=== PATIENT | male | born 1950 | race Caucasian/White ===

== ENCOUNTER 2019-08-10 19:24 | Inpatient (IN) | payer MEDICARE ==
[2019-08-10] MEDS ORDERED: Ventolin HFA Inhaler 60 PUFF INHALER INH PRN (23:17)
[2019-08-11 05:32] LABS: #Eosinphils 0.2 thou/uL (0.0-0.7); #Lymphocytes 1.7 thou/uL (1.20-3.40); #Monocytes 0.7 thou/uL (0.11-0.59); #Neutrophils 2.4 thou/uL (1.40-6.50); %Basophils 0.5 % (0.0-1.0); %Eosinophils 3.3 % (0.0-10.0); %Lymphocytes 34.1 % (21.0-51.0); %Monocytes 13.5 % (0.0-10.0); %Neutrophils 48.6 % (42.0-75.0); Hemoglobin 11.4 g/dL (14.0-18.0); Mean Corpuscular HGB CONC 31.5 g/dL (32.0-36.0); Mean Corpuscular Hemoglobin 27.7 pg (27.0-31.0); Mean Corpuscular Volume 88.1 fL (78.0-98.0); Mean Platelet Volume 5.7 fL (7.4-10.4); Platelet Count 174 thou/uL (130-400); Red Blood Cell (RBC) Count 4.11 mill/uL (4.70-6.10)
[2019-08-11 05:46] LABS: Anion Gap 15 mmol/L (10-20); BUN (Urea Nitrogen) 25 mg/dL (8.4-25.7); Calc. Creatinine Clearance 95 mL/min (70-130); Calcium 9.2 mg/dL (7.8-10.44); Carbon Dioxide 25 mmol/L (23-31); Chloride 104 mmol/L (98-107); Estimated GFR-MDRD 63; Glucose 130 mg/dL (80-115); Potassium 4.4 mmol/L (3.5-5.1); Sodium 140 mmol/L (136-145)
[2019-08-11] MEDS: DULoxetine 30 MG CAP PO SCH ×2 (08:33→20:49)
[2019-08-11] MEDS: metFORMIN 500 MG TAB PO SCH ×2 (08:33→16:05)
[2019-08-11] MEDS: Losartan 25 MG TAB PO SCH (08:33)
[2019-08-11] MEDS: Rosuvastatin 10 MG TAB PO SCH (08:33)
[2019-08-11] MEDS: Aspirin 81 mg Enteric Coated Tablet PO SCH ×2 (08:34→20:49)
[2019-08-11] MEDS: Carvedilol 6.25 MG TAB PO SCH ×2 (08:34→20:50)
[2019-08-11] MEDS: Gabapentin 300 MG CAP PO SCH ×3 (08:34→20:49)
[2019-08-11] MEDS: Potassium Chloride 10 MEQ TAB PO SCH (08:34)
[2019-08-11] MEDS: Furosemide 20 MG TAB PO SCH (08:34)
[2019-08-11] MEDS: HYDROcodone/Acetaminophen 10/325 mg Tablet PO PRN ×2 (11:54→16:05)
[2019-08-11] MEDS: Tamsulosin HCl 0.4 MG CAP PO SCH (20:49)
[2019-08-11] MEDS: Finasteride 5 MG TAB PO SCH (20:53)
[2019-08-12] MEDS: Gabapentin 300 MG CAP PO SCH ×3 (08:34→20:49)
[2019-08-12] MEDS: metFORMIN 500 MG TAB PO SCH ×2 (08:34→16:05)
[2019-08-12] MEDS: Furosemide 20 MG TAB PO SCH (08:34)
[2019-08-12] MEDS: Carvedilol 6.25 MG TAB PO SCH ×2 (08:34→20:48)
[2019-08-12] MEDS: Losartan 25 MG TAB PO SCH (08:34)
[2019-08-12] MEDS: Rosuvastatin 10 MG TAB PO SCH (08:34)
[2019-08-12] MEDS: DULoxetine 30 MG CAP PO SCH ×2 (08:34→20:49)
[2019-08-12] MEDS: Aspirin 81 mg Enteric Coated Tablet PO SCH ×2 (08:34→20:48)
[2019-08-12] MEDS: Potassium Chloride 10 MEQ TAB PO SCH (08:34)
[2019-08-12] MEDS: HYDROcodone/Acetaminophen 10/325 mg Tablet PO PRN ×3 (08:48→22:10)
--- NOTE | 2019-08-12 13:13 | PRG ---
DATE OF SERVICE: 08/12/2019 SUBJECTIVE: Mr. Palacios is doing well. He is up in his chair. He apparently had a good therapy session. Denies any complaints. Denies any chest pain or shortness of breath. No family at bedside. OBJECTIVE: VITAL SIGNS: He is afebrile. Heart rate is 92, respirations 18, oxygen saturation 93% on room air, and blood pressure 126/68. CARDIOVASCULAR: S1 and S2 plus. RESPIRATORY: Normal vesicular breath sounds. ABDOMEN: Soft, nontender. Bowel sounds heard in all quadrants. EXTREMITIES: Without cyanosis or clubbing. Trace left leg edema. Left hip incision with dressing. CENTRAL NERVOUS SYSTEM: Awake and responsive. Generalized weakness. Grossly nonfocal. LABORATORY DATA: Blood sugars are 182, 168, and 168. IMPRESSION: 1. Diabetes mellitus, type 2. 2. Hypertension. 3. Dyslipidemia. 4. Coronary artery disease. 5. Chronic systolic congestive heart failure. 6. Osteoarthritis, status post left hip replacement. 7. Benign prostatic hypertrophy with urinary retention, requiring Fenton catheter. PLAN: 1. Continue current medications. 2. 1800-calorie heart healthy ADA diet. 3. Accu-Cheks with sliding scale coverage. 4. Orthopedic precautions. 5. DVT prophylaxis per Orthopedic's recommendations. 6. Decubitus precaution. 7. Stress ulcer prophylaxis. 8. Continue therapy. 9. Discussed with the patient in detail. All questions answered. Job ID: [id number]
--- NOTE | 2019-08-12 14:02 | HP ---
CHIEF COMPLAINT: Status post left total hip arthroplasty for physical therapy. HISTORY OF PRESENT ILLNESS: This is a very pleasant 69-year-old male, who underwent left total hip arthroplasty and was doing great with therapy. Unfortunately, once his epidural was removed, he apparently was in significant pain and was unable to do much activity. He also was noted to have urinary retention requiring Fenton catheter placement. He also had a low-grade temperature. He slowly improved with IV fluids, tramadol, and Fenton catheter placement and was felt to be a candidate for inpatient therapy and so was transferred here. The patient is resting in bed and denies any complaints. He states that pain is controlled. He did get an episode of shortness of breath, which resolved with him lying down. He denies any chest pain. No fever or chills. His spouse is in the room. PAST MEDICAL HISTORY: 1. Coronary artery disease. 2. Hypertension. 3. Diabetes mellitus, type 2. 4. Benign prostatic hypertrophy with urinary retention, requiring catheter placement. 5. History of chronic kidney disease and acute renal failure, but now laboratory values are within normal limits. 6. History of congestive heart failure, unknown whether it is systolic or diastolic. 7. Osteoarthritis. PAST SURGICAL HISTORY: 1. Coronary artery bypass grafting x4. 2. Spinal fusion in the 1980s. 3. Left total knee replacement in 2010. 4. Biventricular AICD placement in 2017. ALLERGIES: AMITRIPTYLINE, LATEX, AND NATURAL RUBBER. FAMILY HISTORY: Both parents , nothing significant. PSYCHOSOCIAL HISTORY: Former smoker, he quit smoking in 2002. Denies any alcohol or recreational drug abuse. REVIEW OF SYSTEMS: CARDIOVASCULAR SYSTEM: Denies any chest pain, shortness of breath, palpitations, PND, orthopnea, or pedal edema. RESPIRATORY SYSTEM: Denies any chronic cough, expectoration, or pleuritic type chest pain. GASTROINTESTINAL SYSTEM: Denies any nausea, vomiting, diarrhea, constipation, hematemesis, melena, or hematochezia. GENITOURINARY SYSTEM: Urinary retention, requiring Fenton catheter. No hematuria. CENTRAL NERVOUS SYSTEM: Generalized weakness. Denies any focal numbness or weakness or fainting spells. HEENT: Denies any difficulty with speech, vision, hearing, or swallowing. SKIN: Denies any rash. MEDICATIONS: He has been transferred here on the following medications: 1. [place] 10/325 one tablet q.4 p.r.n. pain moderate and 2 tablets q.4 for severe. 2. Albuterol 2 puffs q.6 p.r.n. 3. Ecotrin 81 mg b.i.d. 4. Carvedilol 6.25 mg b.i.d. 5. Cymbalta 60 mg b.i.d. 6. Proscar 5 mg daily. 7. Lasix 20 mg daily. 8. Neurontin 300 mg t.i.d. 9. Cozaar 25 mg daily. 10. Metformin 500 mg b.i.d. 11. Potassium 10 mEq daily. 12. Crestor 20 mg daily. 13. Flomax 0.4 mg at bedtime. 14. Zanaflex 4 mg b.i.d. p.r.n. PHYSICAL EXAMINATION: GENERAL: A very pleasant 69-year-old male, resting comfortably in bed and denies any complaints. His spouse is in the room. VITAL SIGNS: He is afebrile, heart rate 98, respirations 18, oxygen saturation 91% on room air, and blood pressure 156/74. HEENT: Normocephalic and atraumatic. Pupils equally reactive to light and accommodation. External muscles intact. NECK: No JVD, thyromegaly, cervical lymphadenopathy, or throat exudates. No carotid bruits. CARDIOVASCULAR SYSTEM: S1 and S2 plus. Rate and rhythm regular. RESPIRATORY SYSTEM: Normal vesicular breath sounds heard in all lung scott. ABDOMEN: Soft and nontender. Bowel sounds heard in all quadrants. EXTREMITIES: Without cyanosis or clubbing. Hip incision is looking healthy. CENTRAL NERVOUS SYSTEM: Awake and responsive. Cranial nerves 2 through 12 intact. Generalized weakness. LABORATORY DATA: Laboratory values done on admission shows a white count of 5, H and H are 11.4 and 36.3. Sodium 140, potassium 4.4, BUN and creatinine are 25 and 1.15. Blood sugars are 130, 164, and 164. IMPRESSION: 1. Diabetes mellitus, type 2. 2. Hypertension. 3. Coronary artery disease. 4. Chronic systolic congestive heart failure. 5. Benign prostatic hypertrophy. 6. Dyslipidemia. 7. Osteoarthritis, status post hip replacement. 8. Urinary retention, requiring Fenton catheter placement. PLAN: 1. Continue current medications. 2. 1800 calorie heart healthy ADA diet. 3. Accu-Cheks with sliding scale coverage. 4. Monitor blood pressure and adjust medications as needed. 5. Monitor for any decompensation of heart failure. 6. Deep venous thrombosis prophylaxis per Orthopedic recommendation. 7. Decubitus precautions. 8. Stress ulcer prophylaxis. 9. Orthopedic precautions and incision care. 10. Routine laboratory values. 11. PT and OT to eval and treat. 12. Discussed with the patient and spouse in detail. All questions answered. 13. Fenton catheter care. Job ID: [id number]
[2019-08-12] MEDS: Finasteride 5 MG TAB PO SCH (20:49)
[2019-08-12] MEDS: Tamsulosin HCl 0.4 MG CAP PO SCH (20:50)
[2019-08-13] MEDS: Losartan 25 MG TAB PO SCH (08:21)
[2019-08-13] MEDS: Gabapentin 300 MG CAP PO SCH ×3 (08:21→20:45)
[2019-08-13] MEDS: Rosuvastatin 10 MG TAB PO SCH (08:21)
[2019-08-13] MEDS: Potassium Chloride 10 MEQ TAB PO SCH (08:22)
[2019-08-13] MEDS: metFORMIN 500 MG TAB PO SCH ×2 (08:22→17:23)
[2019-08-13] MEDS: HYDROcodone/Acetaminophen 10/325 mg Tablet PO PRN ×2 (08:22→17:22)
[2019-08-13] MEDS: Carvedilol 6.25 MG TAB PO SCH ×2 (08:22→20:44)
[2019-08-13] MEDS: DULoxetine 30 MG CAP PO SCH ×2 (08:22→20:44)
[2019-08-13] MEDS: Aspirin 81 mg Enteric Coated Tablet PO SCH ×2 (08:22→20:44)
[2019-08-13] MEDS: Furosemide 20 MG TAB PO SCH (08:23)
--- NOTE | 2019-08-13 14:06 | PRG ---
DATE OF SERVICE: 08/13/2019 SUBJECTIVE: Mr. Palacios is doing well. He is getting ready to participate with therapy. He denies any questions or concerns. No family at bedside. OBJECTIVE: VITAL SIGNS: He is afebrile, heart rate 88, respirations 20, oxygen saturation 94% on room air, and blood pressure 125/69. CARDIOVASCULAR SYSTEM: S1 and S2 plus. RESPIRATORY SYSTEM: Normal vesicular breath sounds. ABDOMEN: Soft and nontender. Bowel sounds heard in all quadrants. EXTREMITIES: Without cyanosis or clubbing. Fenton catheter in place. CENTRAL NERVOUS SYSTEM: Awake and responsive. Grossly nonfocal. IMPRESSION: 1. Status post left hip replacement. 2. Coronary artery disease. 3. Hypertension. 4. Diabetes mellitus, type 2. 5. Benign prostatic hypertrophy with urinary retention. 6. Osteoarthritis. 7. History of congestive heart failure, likely systolic. PLAN: 1. Continue current medications. 2. 1800 calorie heart healthy ADA diet. 3. Accu-Cheks with sliding scale coverage. 4. DVT prophylaxis per Orthopedic recommendations. 5. Decubitus precautions. 6. Stress ulcer prophylaxis. 7. Routine laboratory values. 8. Physical therapy. Job ID: [id number]
[2019-08-13] MEDS: Finasteride 5 MG TAB PO SCH (20:45)
[2019-08-13] MEDS: Tamsulosin HCl 0.4 MG CAP PO SCH (20:45)
[2019-08-14] MEDS: HYDROcodone/Acetaminophen 10/325 mg Tablet PO PRN ×2 (08:18→18:48)
[2019-08-14] MEDS: Aspirin 81 mg Enteric Coated Tablet PO SCH ×2 (08:19→20:59)
[2019-08-14] MEDS: Rosuvastatin 10 MG TAB PO SCH (08:19)
[2019-08-14] MEDS: DULoxetine 30 MG CAP PO SCH ×2 (08:19→20:58)
[2019-08-14] MEDS: Potassium Chloride 10 MEQ TAB PO SCH (08:19)
[2019-08-14] MEDS: Gabapentin 300 MG CAP PO SCH ×3 (08:19→20:58)
[2019-08-14] MEDS: Losartan 25 MG TAB PO SCH (08:20)
[2019-08-14] MEDS: Carvedilol 6.25 MG TAB PO SCH ×2 (08:20→20:59)
[2019-08-14] MEDS: Furosemide 20 MG TAB PO SCH (08:20)
[2019-08-14] MEDS: metFORMIN 500 MG TAB PO SCH ×2 (08:23→17:22)
[2019-08-14] MEDS: Tamsulosin HCl 0.4 MG CAP PO SCH (20:59)
[2019-08-14] MEDS: Finasteride 5 MG TAB PO SCH (21:00)
[2019-08-15] MEDS: Gabapentin 300 MG CAP PO SCH ×3 (08:03→21:02)
[2019-08-15] MEDS: Rosuvastatin 10 MG TAB PO SCH (08:03)
[2019-08-15] MEDS: Potassium Chloride 10 MEQ TAB PO SCH (08:03)
[2019-08-15] MEDS: DULoxetine 30 MG CAP PO SCH ×2 (08:03→21:01)
[2019-08-15] MEDS: Losartan 25 MG TAB PO SCH (08:04)
[2019-08-15] MEDS: Aspirin 81 mg Enteric Coated Tablet PO SCH ×2 (08:04→21:01)
[2019-08-15] MEDS: Furosemide 20 MG TAB PO SCH (08:04)
[2019-08-15] MEDS: metFORMIN 500 MG TAB PO SCH ×2 (08:04→16:11)
[2019-08-15] MEDS: Carvedilol 6.25 MG TAB PO SCH ×2 (08:04→21:02)
[2019-08-15] MEDS: HYDROcodone/Acetaminophen 10/325 mg Tablet PO PRN (13:39)
[2019-08-15] MEDS: Tamsulosin HCl 0.4 MG CAP PO SCH (21:01)
[2019-08-15] MEDS: Finasteride 5 MG TAB PO SCH (21:02)
[2019-08-16] MEDS: Potassium Chloride 10 MEQ TAB PO SCH (08:02)
[2019-08-16] MEDS: metFORMIN 500 MG TAB PO SCH ×2 (08:02→17:31)
[2019-08-16] MEDS: DULoxetine 30 MG CAP PO SCH ×2 (08:02→21:25)
[2019-08-16] MEDS: Aspirin 81 mg Enteric Coated Tablet PO SCH ×2 (08:02→21:25)
[2019-08-16] MEDS: Gabapentin 300 MG CAP PO SCH ×3 (08:03→21:25)
[2019-08-16] MEDS: Losartan 25 MG TAB PO SCH (08:03)
[2019-08-16] MEDS: Carvedilol 6.25 MG TAB PO SCH ×2 (08:03→21:25)
[2019-08-16] MEDS: Furosemide 20 MG TAB PO SCH (08:03)
[2019-08-16] MEDS: Rosuvastatin 10 MG TAB PO SCH (08:05)
[2019-08-16] MEDS: HYDROcodone/Acetaminophen 10/325 mg Tablet PO PRN ×4 (09:33→22:44)
--- NOTE | 2019-08-16 19:03 | RAD ---
Exam:One view left hip HISTORY: Pain COMPARISON: None FINDINGS: One view left hip demonstrates uncomplicated hip arthroplasty. Visualized bony pelvis is un remarkable IMPRESSION: Unremarkable exam
[2019-08-16] MEDS: Tamsulosin HCl 0.4 MG CAP PO SCH (21:25)
[2019-08-16] MEDS: Finasteride 5 MG TAB PO SCH (21:26)
[2019-08-17] MEDS: Carvedilol 6.25 MG TAB PO SCH ×2 (07:58→20:28)
[2019-08-17] MEDS: Aspirin 81 mg Enteric Coated Tablet PO SCH ×2 (07:58→20:27)
[2019-08-17] MEDS: metFORMIN 500 MG TAB PO SCH ×2 (07:58→17:51)
[2019-08-17] MEDS: Rosuvastatin 10 MG TAB PO SCH (08:01)
[2019-08-17] MEDS: Potassium Chloride 10 MEQ TAB PO SCH (08:01)
[2019-08-17] MEDS: Furosemide 20 MG TAB PO SCH (08:01)
[2019-08-17] MEDS: Gabapentin 300 MG CAP PO SCH ×3 (08:01→20:28)
[2019-08-17] MEDS: HYDROcodone/Acetaminophen 10/325 mg Tablet PO PRN ×2 (08:01→23:39)
[2019-08-17] MEDS: Losartan 25 MG TAB PO SCH (08:01)
[2019-08-17] MEDS: DULoxetine 30 MG CAP PO SCH ×2 (08:01→20:27)
--- NOTE | 2019-08-17 13:24 | PRG ---
DATE OF SERVICE: 08/17/2019 SUBJECTIVE: Mr. Palacios has been moved up to room 141. He apparently is progressing with therapy as expected. He did have some drainage from the incision site, but the current dressing is dry. He denies any fever, chills, or any increasing pain. Discussed with nursing. OBJECTIVE: VITAL SIGNS: He is afebrile, heart rate 93, respirations 20, oxygen saturation 95% on room air, blood pressure 127/67. CARDIOVASCULAR: S1 and S2 plus. RESPIRATORY: Normal vesicular breath sounds. ABDOMEN: Soft and nontender. Bowel sounds heard in all quadrants. EXTREMITIES: Without cyanosis or clubbing. Trace edema, left leg. Left hip incision with dressing. CENTRAL NERVOUS SYSTEM: Awake and responsive. Generalized weakness. Otherwise, nonfocal. LABORATORY DATA: Blood sugars are 141, 129, 124, 201, 135, and 201. IMPRESSION: 1. Diabetes mellitus, type 2. 2. Coronary artery disease. 3. Hypertension. 4. Benign prostatic hypertrophy. 5. Osteoarthritis. 6. Chronic systolic congestive heart failure. 7. Recent left hip replacement. PLAN: 1. Continue current medications. 2. 1800-calorie heart-healthy ADA diet. 3. Accu-Cheks with sliding scale coverage. 4. DVT prophylaxis. 5. Fenton catheter care. 6. Physical therapy. 7. Routine laboratory values. 8. Continue therapy. 9. Discussed with the patient in detail. All questions were answered. Job ID: [id number]
[2019-08-17] MEDS: Tamsulosin HCl 0.4 MG CAP PO SCH (20:28)
[2019-08-17] MEDS: Finasteride 5 MG TAB PO SCH (20:29)
[2019-08-18 05:36] LABS: #Basophils 0.1 thou/uL (0.0-0.2); #Eosinphils 0.2 thou/uL (0.0-0.7); #Monocytes 0.5 thou/uL (0.11-0.59); #Neutrophils 2.5 thou/uL (1.40-6.50); %Basophils 1.1 % (0.0-1.0); %Eosinophils 3.1 % (0.0-10.0); %Lymphocytes 38.2 % (21.0-51.0); %Monocytes 9.3 % (0.0-10.0); %Neutrophils 48.4 % (42.0-75.0); Hemoglobin 12.1 g/dL (14.0-18.0); Mean Corpuscular HGB CONC 32.3 g/dL (32.0-36.0); Mean Corpuscular Hemoglobin 28.7 pg (27.0-31.0); Mean Corpuscular Volume 89.1 fL (78.0-98.0); Mean Platelet Volume 5.9 fL (7.4-10.4); Platelet Count 251 thou/uL (130-400); RBC Distribution Width 12.1 % (11.5-14.5); Red Blood Cell (RBC) Count 4.19 mill/uL (4.70-6.10); White Blood Cell (WBC) Count 5.2 thou/uL (4.8-10.8)
[2019-08-18 05:53] LABS: Anion Gap 16 mmol/L (10-20); BUN (Urea Nitrogen) 28 mg/dL (8.4-25.7); Calc. Creatinine Clearance 83 mL/min (70-130); Carbon Dioxide 26 mmol/L (23-31); Chloride 103 mmol/L (98-107); Estimated GFR-MDRD 53; Glucose 148 mg/dL (80-115); Potassium 4.5 mmol/L (3.5-5.1); Sodium 140 mmol/L (136-145)
[2019-08-18] MEDS: metFORMIN 500 MG TAB PO SCH ×2 (08:23→16:09)
[2019-08-18] MEDS: Rosuvastatin 10 MG TAB PO SCH (08:24)
[2019-08-18] MEDS: Furosemide 20 MG TAB PO SCH (08:27)
[2019-08-18] MEDS: Aspirin 81 mg Enteric Coated Tablet PO SCH ×2 (08:27→20:16)
[2019-08-18] MEDS: Carvedilol 6.25 MG TAB PO SCH ×2 (08:28→20:17)
[2019-08-18] MEDS: Potassium Chloride 10 MEQ TAB PO SCH (08:28)
[2019-08-18] MEDS: DULoxetine 30 MG CAP PO SCH ×2 (08:35→20:17)
[2019-08-18] MEDS: Gabapentin 300 MG CAP PO SCH ×3 (08:36→20:17)
[2019-08-18] MEDS: Losartan 25 MG TAB PO SCH (08:40)
[2019-08-18] MEDS: HYDROcodone/Acetaminophen 10/325 mg Tablet PO PRN ×2 (10:39→20:18)
--- NOTE | 2019-08-18 13:53 | PRG ---
DATE OF SERVICE: 08/18/2019 SUBJECTIVE: Mr. Palacios is doing well. He is up in his chair. No further oozing onto his incision dressing. I advise him to drink plenty of water as his creatinine is slowly creeping up. OBJECTIVE: VITAL SIGNS: He is afebrile. Heart rate is 90, respirations 18, oxygen saturation 93% on room air, and blood pressure 144/81. CARDIOVASCULAR SYSTEM: S1 and S2 plus. RESPIRATORY SYSTEM: Normal vesicular breath sounds. ABDOMEN: Soft, nontender, and obese. Bowel sounds heard in all quadrants. EXTREMITIES: Without cyanosis or clubbing. Left hip incision is dry. CENTRAL NERVOUS SYSTEM: Awake and responsive. Grossly nonfocal. ASSESSMENT: 1. Status post left hip arthroplasty for osteoarthritis. 2. Diabetes mellitus, type 2. 3. Coronary artery disease. 4. Hypertension. 5. BPH. 6. Chronic systolic congestive heart failure seven. 7. Mild renal insufficiency, likely prerenal. PLAN: 1. Continue current medications. 2. 1800 calorie heart healthy ADA diet and encouraged more water intake. 3. Accu-Cheks with sliding scale coverage. 4. Monitor blood pressure and adjust medications as needed. 5. Orthopedic precautions. 6. Incision care. 7. Routine laboratory values. 8. Physical therapy. 9. Monitor for any decompensation of heart failure. Job ID: [id number]
[2019-08-18] MEDS: Finasteride 5 MG TAB PO SCH (20:17)
[2019-08-18] MEDS: Tamsulosin HCl 0.4 MG CAP PO SCH (20:17)
[2019-08-19] MEDS: Aspirin 81 mg Enteric Coated Tablet PO SCH ×2 (08:27→20:02)
[2019-08-19] MEDS: Furosemide 20 MG TAB PO SCH (08:27)
[2019-08-19] MEDS: Potassium Chloride 10 MEQ TAB PO SCH (08:28)
[2019-08-19] MEDS: metFORMIN 500 MG TAB PO SCH ×2 (08:28→16:55)
[2019-08-19] MEDS: Gabapentin 300 MG CAP PO SCH ×3 (08:28→20:02)
[2019-08-19] MEDS: Carvedilol 6.25 MG TAB PO SCH ×2 (08:29→20:02)
[2019-08-19] MEDS: DULoxetine 30 MG CAP PO SCH ×2 (08:31→20:02)
[2019-08-19] MEDS: Losartan 25 MG TAB PO SCH (08:33)
[2019-08-19] MEDS: Rosuvastatin 10 MG TAB PO SCH (08:33)
[2019-08-19] MEDS: HYDROcodone/Acetaminophen 10/325 mg Tablet PO PRN ×2 (09:34→13:36)
--- NOTE | 2019-08-19 13:14 | PRG ---
DATE OF SERVICE: 08/19/2019 SUBJECTIVE: Mr. Palacios is doing well, did well with therapy. His spouse is in the room. No concerns or questions. OBJECTIVE: VITAL SIGNS: He is afebrile, heart rate is 87, respirations 20, oxygen saturation 92% on room air, blood pressure 160/81. CARDIOVASCULAR SYSTEM: S1 and S2 plus. RESPIRATORY SYSTEM: Vesicular breath sounds. ABDOMEN: Soft, nontender. Bowel sounds heard in all quadrants. EXTREMITIES: Without cyanosis or clubbing. Left hip incision with dressing. CENTRAL NERVOUS SYSTEM: Awake and responsive. Generalized weakness. LABORATORY DATA: Blood sugars are 201, 197, 144, and 219. IMPRESSION: 1. Left hip replacement for osteoarthritis. 2. Chronic systolic congestive heart failure. 3. Diabetes mellitus type 2. 4. Coronary artery disease. 5. Hypertension. 6. Benign prostatic hypertrophy. PLAN: 1. Continue current medications. 2. 1800 calorie heart healthy ADA diet. 3. Accu-Cheks with sliding scale coverage. 4. DVT prophylaxis per Orthopedic recommendations. 5. Decubitus precautions. 6. Stress ulcer prophylaxis. 7. Incision care. 8. Physical therapy. 9. Discussed with the patient and spouse in detail. All questions were answered. Job ID: [id number]
[2019-08-19] MEDS: Finasteride 5 MG TAB PO SCH (20:02)
[2019-08-19] MEDS: Tamsulosin HCl 0.4 MG CAP PO SCH (20:02)
[2019-08-20] MEDS: HYDROcodone/Acetaminophen 10/325 mg Tablet PO PRN ×3 (08:27→21:57)
[2019-08-20] MEDS: Aspirin 81 mg Enteric Coated Tablet PO SCH ×2 (08:29→21:57)
[2019-08-20] MEDS: Rosuvastatin 10 MG TAB PO SCH (08:29)
[2019-08-20] MEDS: Furosemide 20 MG TAB PO SCH (08:29)
[2019-08-20] MEDS: Losartan 25 MG TAB PO SCH (08:29)
[2019-08-20] MEDS: metFORMIN 500 MG TAB PO SCH ×2 (08:29→17:33)
[2019-08-20] MEDS: Carvedilol 6.25 MG TAB PO SCH ×2 (08:29→21:56)
[2019-08-20] MEDS: DULoxetine 30 MG CAP PO SCH ×2 (08:29→21:56)
[2019-08-20] MEDS: Potassium Chloride 10 MEQ TAB PO SCH (08:30)
[2019-08-20] MEDS: Gabapentin 300 MG CAP PO SCH ×3 (08:30→21:56)
--- NOTE | 2019-08-20 13:24 | PRG ---
DATE OF SERVICE: 08/20/2019 SUBJECTIVE: Mr. Palacios is doing well. He participated with therapy trying to get in and out of his car. He apparently continues to have episodes of lightheadedness and dizziness, especially when he changes positions. This has been going on even prior to his admission. He denies any ringing noise in the ears. He denies any URI symptoms. He denies any palpitations or visual symptoms with these episodes. OBJECTIVE: VITAL SIGNS: He is afebrile, heart rate 92, respirations 20, oxygen saturation 93% on room air, blood pressure 144/77. CARDIOVASCULAR: S1 and S2 plus. RESPIRATORY: Normal vesicular breath sounds. ABDOMEN: Soft and nontender. Bowel sounds heard in all quadrants. EXTREMITIES: Without cyanosis or clubbing. CENTRAL NERVOUS SYSTEM: Awake and responsive. Grossly nonfocal. Cerebellar testing is negative. Romberg's, not done due to the patient resting in bed, but his dizziness sounds more orthostatic. IMPRESSION: 1. Left hip replacement. 2. Diabetes mellitus, type 2. 3. Chronic systolic congestive heart failure. 4. Benign prostatic hypertrophy. 5. Dyslipidemia. 6. Dizziness, may be worsened by his Flomax. PLAN: 1. Continue current medications. 2. Slow changes in posture. 3. 1800-calorie heart-healthy ADA diet. 4. Accu-Cheks with sliding scale coverage. 5. Physical therapy. 6. Check with orthopedic surgeon and see if the gm can come out today, it is day 15. 7. Discussed with nursing,. Routine laboratory values and discharge planning. Job ID: [id number]
[2019-08-20] MEDS: Tamsulosin HCl 0.4 MG CAP PO SCH (21:56)
[2019-08-20] MEDS: Finasteride 5 MG TAB PO SCH (21:57)
[2019-08-21] MEDS: Gabapentin 300 MG CAP PO SCH ×3 (08:27→20:49)
[2019-08-21] MEDS: Potassium Chloride 10 MEQ TAB PO SCH (08:27)
[2019-08-21] MEDS: DULoxetine 30 MG CAP PO SCH ×2 (08:27→20:52)
[2019-08-21] MEDS: metFORMIN 500 MG TAB PO SCH ×2 (08:27→15:58)
[2019-08-21] MEDS: Rosuvastatin 10 MG TAB PO SCH (08:27)
[2019-08-21] MEDS: Carvedilol 6.25 MG TAB PO SCH ×2 (08:27→20:52)
[2019-08-21] MEDS: HYDROcodone/Acetaminophen 10/325 mg Tablet PO PRN ×2 (08:28→13:45)
[2019-08-21] MEDS: Aspirin 81 mg Enteric Coated Tablet PO SCH ×2 (08:28→20:52)
[2019-08-21] MEDS: Furosemide 20 MG TAB PO SCH (08:28)
[2019-08-21] MEDS: Losartan 25 MG TAB PO SCH (08:28)
[2019-08-21] MEDS ORDERED: Polyethylene Glycol 3350 17 GM Packet PO SCH (09:45)
--- NOTE | 2019-08-21 09:47 | PRG ---
DATE OF SERVICE: 08/21/2019 SUBJECTIVE: Mr. Palacios is doing well except for constipation. No family at bedside. Discussed with nursing. OBJECTIVE: VITAL SIGNS: He is afebrile. Heart rate is 85, respirations 20, oxygen saturation 92% on room air, and blood pressure 111/65. CARDIOVASCULAR: S1 and S2 plus. RESPIRATORY SYSTEM: Normal vesicular breath sounds. ABDOMEN: Soft and nontender. Bowel sounds heard in all quadrants. EXTREMITIES: Without cyanosis or clubbing. Peripheral pulses are palpable. Left hip incision with dressing and it is dry. CENTRAL NERVOUS SYSTEM: Awake and responsive. Grossly nonfocal. LABORATORY DATA: Blood sugars are 128, 158, 124, 161, and 125. IMPRESSION: 1. Status post left hip arthroplasty. 2. Diabetes mellitus, type 2. 3. Coronary artery disease. 4. Chronic systolic congestive heart failure. 5. Benign prostatic hypertrophy. 6. Worsening renal insufficiency. PLAN: 1. Continue current medications. 2. 1800-calorie heart healthy ADA diet. 3. Accu-Cheks with sliding scale coverage. 4. DVT prophylaxis per Orthopedic recommendations. 5. Decubitus precautions. 6. Stress ulcer prophylaxis. 7. Recheck BMP and CBC in the morning. 8. Continue physical therapy. 9. Orthopedic precautions and incision care. 10. Outpatient followup with Urology to see if there is any alternative for Flomax and see if that helps with his orthostatic lightheadedness and dizziness. Job ID: [id number]
[2019-08-21] MEDS: Tamsulosin HCl 0.4 MG CAP PO SCH (20:52)
[2019-08-21] MEDS: Finasteride 5 MG TAB PO SCH (20:55)
[2019-08-22 05:22] LABS: #Basophils 0.1 thou/uL (0.0-0.2); #Eosinphils 0.3 thou/uL (0.0-0.7); #Lymphocytes 1.7 thou/uL (1.20-3.40); #Monocytes 0.6 thou/uL (0.11-0.59); #Neutrophils 2.3 thou/uL (1.40-6.50); %Basophils 1.2 % (0.0-1.0); %Eosinophils 5.5 % (0.0-10.0); %Monocytes 11.4 % (0.0-10.0); %Neutrophils 46.9 % (42.0-75.0); Mean Corpuscular HGB CONC 31.9 g/dL (32.0-36.0); Mean Corpuscular Hemoglobin 28.6 pg (27.0-31.0); Mean Corpuscular Volume 89.6 fL (78.0-98.0); Mean Platelet Volume 6.5 fL (7.4-10.4); Platelet Count 195 thou/uL (130-400); RBC Distribution Width 12.4 % (11.5-14.5); Red Blood Cell (RBC) Count 4.22 mill/uL (4.70-6.10)
[2019-08-22 05:36] LABS: Anion Gap 15 mmol/L (10-20); BUN (Urea Nitrogen) 34 mg/dL (8.4-25.7); Calc. Creatinine Clearance 79 mL/min (70-130); Calcium 9.1 mg/dL (7.8-10.44); Carbon Dioxide 26 mmol/L (23-31); Chloride 104 mmol/L (98-107); Estimated GFR-MDRD 50; Glucose 154 mg/dL (80-115); Potassium 4.9 mmol/L (3.5-5.1); Sodium 140 mmol/L (136-145)
[2019-08-22] MEDS: Polyethylene Glycol 3350 17 GM Packet PO SCH (08:37)
[2019-08-22] MEDS: HYDROcodone/Acetaminophen 10/325 mg Tablet PO PRN (08:37)
[2019-08-22] MEDS: Gabapentin 300 MG CAP PO SCH ×3 (08:38→20:27)
[2019-08-22] MEDS: Aspirin 81 mg Enteric Coated Tablet PO SCH ×2 (08:38→20:28)
[2019-08-22] MEDS: Carvedilol 6.25 MG TAB PO SCH ×2 (08:38→20:27)
[2019-08-22] MEDS: Losartan 25 MG TAB PO SCH (08:38)
[2019-08-22] MEDS: metFORMIN 500 MG TAB PO SCH ×2 (08:38→16:02)
[2019-08-22] MEDS: DULoxetine 30 MG CAP PO SCH ×2 (08:38→20:27)
[2019-08-22] MEDS: Furosemide 20 MG TAB PO SCH (08:39)
[2019-08-22] MEDS: Potassium Chloride 10 MEQ TAB PO SCH (08:39)
[2019-08-22] MEDS: Rosuvastatin 10 MG TAB PO SCH (08:39)
--- NOTE | 2019-08-22 14:10 | PRG ---
DATE OF SERVICE: 08/22/2019 SUBJECTIVE: Mr. Palacios is doing well. He is getting ready to walk in the hallways with his walker. He is close to meeting goals and anticipated discharge is sometime next week. He was concerned about mass in the back of his neck, and on examination, it feels like a lipoma. Apparently, his primary care physician checked it 6 months ago and was also not concerned. OBJECTIVE: VITAL SIGNS: He is afebrile. Heart rate 78, respirations 18, oxygen saturation 94% on room air, blood pressure is 111/65. CARDIOVASCULAR: S1 and S2 plus. RESPIRATORY: Normal vesicular breath sounds. ABDOMEN: Soft, nontender. Bowel sounds heard in all quadrants. EXTREMITIES: Without cyanosis or clubbing. Left hip incision is healthy. CENTRAL NERVOUS SYSTEM: Awake and responsive, generalized weakness, otherwise nonfocal. LABORATORY DATA: His blood sugars are 125, 208, 130, and 162. Sodium 140, potassium 4.9, BUN and creatinine are 34 and 1.41. White count is 5, hemoglobin and hematocrit are 12 and 37.8. IMPRESSION: 1. Status post left total hip arthroplasty for osteoarthritis. 2. Orthostatic lightheadedness, dizziness, possibly contributed by Flomax. 3. Coronary artery disease. 4. Chronic systolic congestive heart failure. 5. Hypertension. 6. Diabetes mellitus, type 2. 7. Benign prostatic hypertrophy. PLAN: 1. Continue current medications. 2. 1800 calorie heart healthy ADA diet. 3. Fenton catheter care. 4. Accu-Cheks with sliding scale coverage. 5. Outpatient followup with Urology to see if there is any alternative for Flomax. 6. Continue therapy. 7. Discharge planning. 8. Dr. Cody and Dr. Whalen will follow the patient from tomorrow. Job ID: [id number]
[2019-08-22] MEDS: Tamsulosin HCl 0.4 MG CAP PO SCH (20:28)
[2019-08-22] MEDS: Finasteride 5 MG TAB PO SCH (20:28)
[2019-08-23 03:35] VITALS: BMI 33.3
[2019-08-23] MEDS: Polyethylene Glycol 3350 17 GM Packet PO SCH (08:43)
[2019-08-23] MEDS: metFORMIN 500 MG TAB PO SCH ×2 (08:43→16:02)
[2019-08-23] MEDS: DULoxetine 30 MG CAP PO SCH ×2 (08:43→20:09)
[2019-08-23] MEDS: Carvedilol 6.25 MG TAB PO SCH ×2 (08:44→20:09)
[2019-08-23] MEDS: Losartan 25 MG TAB PO SCH (08:44)
[2019-08-23] MEDS: Gabapentin 300 MG CAP PO SCH ×3 (08:44→20:09)
[2019-08-23] MEDS: Rosuvastatin 10 MG TAB PO SCH (08:44)
[2019-08-23] MEDS: Aspirin 81 mg Enteric Coated Tablet PO SCH ×2 (08:44→20:09)
[2019-08-23] MEDS: Furosemide 20 MG TAB PO SCH (08:44)
[2019-08-23] MEDS: Potassium Chloride 10 MEQ TAB PO SCH (08:44)
[2019-08-23] MEDS: Tamsulosin HCl 0.4 MG CAP PO SCH (20:09)
[2019-08-23] MEDS: Finasteride 5 MG TAB PO SCH (20:09)
[2019-08-24] MEDS: metFORMIN 500 MG TAB PO SCH ×2 (08:06→16:15)
[2019-08-24] MEDS: Carvedilol 6.25 MG TAB PO SCH ×2 (08:07→19:59)
[2019-08-24] MEDS: Aspirin 81 mg Enteric Coated Tablet PO SCH ×2 (08:07→19:59)
[2019-08-24] MEDS: Potassium Chloride 10 MEQ TAB PO SCH (08:11)
[2019-08-24] MEDS: Polyethylene Glycol 3350 17 GM Packet PO SCH (08:11)
[2019-08-24] MEDS: DULoxetine 30 MG CAP PO SCH ×2 (08:11→19:59)
[2019-08-24] MEDS: Furosemide 20 MG TAB PO SCH (08:11)
[2019-08-24] MEDS: Gabapentin 300 MG CAP PO SCH ×3 (08:11→19:59)
[2019-08-24] MEDS: Losartan 25 MG TAB PO SCH (08:11)
[2019-08-24] MEDS: HYDROcodone/Acetaminophen 10/325 mg Tablet PO PRN (08:12)
[2019-08-24] MEDS: Rosuvastatin 10 MG TAB PO SCH (08:12)
[2019-08-24] MEDS: Tamsulosin HCl 0.4 MG CAP PO SCH (19:59)
[2019-08-24] MEDS: Finasteride 5 MG TAB PO SCH (19:59)
--- NOTE | 2019-08-24 22:00 | PRG ---
DATE OF SERVICE: 08/24/2019 SUBJECTIVE: Mr. Palacios is a very pleasant 69-year-old white male, who had a total left hip arthroplasty. Unfortunately, his epidural was removed. He had significant pain and he was unable to do any activity. He was also noted to have urinary retention and required a Fenton catheter. He slowly improved, was transferred to inpatient rehab for physical therapy and occupational therapy. The patient has been under the care of Dr. Gallardo who recently went on vacation. Today, the patient states he is doing fairly well and has no concerns or complaints. He is found walking. He has no concerns or complaints today. Vital signs revealed blood pressure this morning 137/76, pulse 89 to 96, respirations 20, O2 saturation 92 on room air, T-max 97.6. PHYSICAL EXAMINATION: GENERAL: This is a well-developed, well-nourished, very pleasant, 69-year-old white male, in no apparent distress at this time. HEENT: Normocephalic and nontraumatic cranium. The pupils are equally round and reactive to light. Extraocular movements are intact. Nose and throat are slightly dry. NECK: Supple without masses, nodes, or bruits. CHEST: Clear to auscultation. No rales, rhonchi, wheezes are heard. HEART: Reveals a regular rate and rhythm without murmurs, gallops or rubs. ABDOMEN: Soft, nontender without organomegaly. Normal bowel sounds are noted. No rebound or guarding is noted. : Deferred. EXTREMITIES: Reveal no clubbing, cyanosis, or edema. Left hip incision is not draining, not red, not inflammed. IMPRESSION: 1. Status post left total hip. 2. Occasional orthostatic hypotension with dizziness. 3. Coronary artery disease. 4. Chronic systolic congestive heart failure. 5. Hypertension. 6. Diabetes type 2. 7. Benign prostatic hyperplasia. 8. Generalized weakness. PLAN: 1. Continue present medications. 2. Continue Fenton catheter care. 3. Accu-Cheks with a.c. and at bedtime to monitor the patient's sugar. 4. Monitor the patient's blood pressure closely, adjust medications as needed. 5. Stress ulcer prophylaxis. 6. Decubitus precautions. 7. DVT prophylaxis per Primary Service. 8. Physical therapy and occupational therapy. Job ID: [id number]
[2019-08-25] MEDS: HYDROcodone/Acetaminophen 10/325 mg Tablet PO PRN (08:13)
[2019-08-25] MEDS: metFORMIN 500 MG TAB PO SCH ×2 (08:15→17:43)
[2019-08-25] MEDS: DULoxetine 30 MG CAP PO SCH ×2 (08:15→20:01)
[2019-08-25] MEDS: Aspirin 81 mg Enteric Coated Tablet PO SCH ×2 (08:15→20:01)
[2019-08-25] MEDS: Carvedilol 6.25 MG TAB PO SCH ×2 (08:15→20:01)
[2019-08-25] MEDS: Furosemide 20 MG TAB PO SCH (08:16)
[2019-08-25] MEDS: Potassium Chloride 10 MEQ TAB PO SCH (08:16)
[2019-08-25] MEDS: Gabapentin 300 MG CAP PO SCH ×3 (08:16→20:01)
[2019-08-25] MEDS: Losartan 25 MG TAB PO SCH (08:16)
[2019-08-25] MEDS: Polyethylene Glycol 3350 17 GM Packet PO SCH (08:16)
[2019-08-25] MEDS: Rosuvastatin 10 MG TAB PO SCH (08:17)
--- NOTE | 2019-08-25 13:28 | PRG ---
DATE OF SERVICE: 08/25/2019 SUBJECTIVE: Mr. Palacios is a well-developed, well-nourished 69-year-old white male, who had a total left hip arthroplasty. His epidural was removed. He had significant pain, and he was unable to do any activity. It is also noted to have urinary retention and required a Fenton catheter. Eventually, he was stabilized and transferred to inpatient rehab for physical therapy and occupational therapy. He has been under the care of Dr. Bryan, who recently went on vacation. The patient states that he is doing well. He is walking everywhere except occasionally when he sits up too quick or gets up, he feels some dizziness. Mostly likely is orthostasis. I did recommend to put LEILA hose on him. OBJECTIVE: VITAL SIGNS: Today reveal blood pressure this morning was 130/74, pulse 108, respirations 18, O2 saturation 92% on room air, and T-max 97.6. GENERAL: This is a well-developed, well-nourished, very pleasant 69-year-old white male, who has actually been up and around walking quite a bit. HEENT: Reveals normocephalic and nontraumatic cranium. Pupils are equal, round, and reactive. Extraocular movements are intact. Nose and throat are slightly dry. NECK: Supple without masses, nodes, or bruits. CHEST: Clear to auscultation. No rales, rhonchi, wheezes, or cough is noted. HEART: Reveals a regular rate and rhythm without murmurs, gallops, or rubs. ABDOMEN: Soft and nontender without organomegaly. Normal bowel sounds are noted in all 4 quadrants. GENITOURINARY: Exam is deferred. EXTREMITIES: Reveal no clubbing, cyanosis, or edema. Left hip incision is doing well, red, inflamed, or draining. IMPRESSION: 1. Occasional dizzy spells, most likely orthostatic hypotension. 2. Coronary artery disease. 3. History of chronic systolic congestive heart failure. 4. Status post left total hip. 5. Hypertension. 6. Diabetes type 2. 7. Benign prostatic hyperplasia. 8. Generalized weakness. PLAN: 1. Continue present medication. 2. Continue Fenton catheter. 3. Accu-Cheks before meals and at bedtime. 4. Monitor the patient's blood pressure closely. Adjust medications as needed. 5. Stress ulcer prophylaxis. 6. Decubitus precautions. 7. DVT prophylaxis per Primary Service. 8. Physical therapy and occupational therapy. The patient and I have discussed with PT and OT, how well he is doing. PT and OT feel like the patient is ready to be discharged as long as they can get him set up for either outpatient physical therapy or home physical therapy. I did talk to the patient about this. He said his has to make decision. I asked Case Management to call the patient's and see if we get her moving on this issue. There is possibly he could be discharged tomorrow with not most likely . Job ID: [id number]
[2019-08-25] MEDS: Finasteride 5 MG TAB PO SCH (20:01)
[2019-08-25] MEDS: Tamsulosin HCl 0.4 MG CAP PO SCH (20:01)
[2019-08-25] MEDS: tiZANidine HCl 4 MG TAB PO PRN (20:48)
[2019-08-26] MEDS: Gabapentin 300 MG CAP PO SCH ×3 (08:54→19:58)
[2019-08-26] MEDS: DULoxetine 30 MG CAP PO SCH ×2 (08:54→19:58)
[2019-08-26] MEDS: Aspirin 81 mg Enteric Coated Tablet PO SCH ×2 (08:54→19:57)
[2019-08-26] MEDS: Potassium Chloride 10 MEQ TAB PO SCH (08:54)
[2019-08-26] MEDS: Carvedilol 3.125 MG TAB PO SCH ×2 (08:55→17:05)
[2019-08-26] MEDS: metFORMIN 500 MG TAB PO SCH ×2 (08:55→17:05)
[2019-08-26] MEDS: Rosuvastatin 10 MG TAB PO SCH (08:55)
[2019-08-26] MEDS: Furosemide 20 MG TAB PO SCH (08:55)
[2019-08-26] MEDS: Losartan 25 MG TAB PO SCH (08:55)
[2019-08-26] MEDS: Polyethylene Glycol 3350 17 GM Packet PO SCH (08:56)
[2019-08-26] MEDS: HYDROcodone/Acetaminophen 10/325 mg Tablet PO PRN ×2 (13:00→23:34)
--- NOTE | 2019-08-26 17:24 | PRG ---
DATE OF SERVICE: 08/26/2019 SUBJECTIVE: Mr. Palacios is a 69-year-old white male, who had a total hip arthroplasty done. Unfortunately, when his epidural was removed, he had significant excruciating pain and was unable to do any activity. He also had urinary retention requiring a Fenton catheter. Eventually, he was stabilized and transferred to [facility] under the care of Dr. Gallardo, who has been following him until he went on vacation. The patient is doing well, expected to be discharged on Saturday. OBJECTIVE: VITAL SIGNS: Today reveal blood pressure this morning was 134/83, pulse 92, respirations 16, O2 saturation 94% on room air, T-max 97.4. GENERAL: This is a well-developed, well-nourished, very pleasant, slightly obese, white male, in no apparent distress at this time. HEENT: Reveals normocephalic and nontraumatic cranium. Pupils are equal, round, and reactive. Extraocular movements are intact. Nose and throat are moist today. NECK: Supple without masses, nodes, or bruits. CHEST: Clear to auscultation. No rales, rhonchi, wheezes, or cough is heard. HEART: Reveals a regular rate and rhythm. No murmurs, gallops, or rubs are noted. ABDOMEN: Soft and nontender without organomegaly. Normal bowel sounds are noted in all 4 quadrants. GENITOURINARY: Deferred. EXTREMITIES: Reveal no clubbing, cyanosis, or edema. Left hip incision is healed. IMPRESSION: 1. Orthostasis from hypotension, which responded very well to LEILA hose. The patient is amazed. 2. Coronary artery disease. 3. History of chronic systolic congestive heart failure. 4. Status post left total hip. 5. Hypertension. 6. Diabetes, type 2. 7. Benign prostatic hypertrophy. 8. Generalized weakness. PLAN: 1. Continue LEILA hose p.r.n. 2. Continue Fenton catheter. 3. Accu-Cheks before meals and at bedtime. 4. Monitor the patient's blood pressure closely and adjust medications if needed. 5. Stress ulcer prophylaxis. 6. Decubitus precautions. 7. DVT prophylaxis. 8. Physical therapy and occupational therapy. 9. The patient to be discharged Saturday morning. Job ID: [id number]
[2019-08-26] MEDS: Tamsulosin HCl 0.4 MG CAP PO SCH (19:58)
[2019-08-26] MEDS: Finasteride 5 MG TAB PO SCH (19:58)
[2019-08-26] MEDS: tiZANidine HCl 4 MG TAB PO PRN (20:01)
[2019-08-27] MEDS: Polyethylene Glycol 3350 17 GM Packet PO SCH (08:48)
[2019-08-27] MEDS: metFORMIN 500 MG TAB PO SCH ×2 (08:48→17:24)
[2019-08-27] MEDS: Potassium Chloride 10 MEQ TAB PO SCH (08:48)
[2019-08-27] MEDS: DULoxetine 30 MG CAP PO SCH ×2 (08:49→20:07)
[2019-08-27] MEDS: Gabapentin 300 MG CAP PO SCH ×3 (08:50→20:08)
[2019-08-27] MEDS: Furosemide 20 MG TAB PO SCH (08:50)
[2019-08-27] MEDS: Aspirin 81 mg Enteric Coated Tablet PO SCH ×2 (08:50→20:07)
[2019-08-27] MEDS: Losartan 25 MG TAB PO SCH (08:50)
[2019-08-27] MEDS: Rosuvastatin 10 MG TAB PO SCH (08:51)
[2019-08-27] MEDS: Carvedilol 3.125 MG TAB PO SCH ×2 (08:52→17:24)
[2019-08-27] MEDS: HYDROcodone/Acetaminophen 10/325 mg Tablet PO PRN (09:00)
[2019-08-27] MEDS: Finasteride 5 MG TAB PO SCH (20:08)
[2019-08-27] MEDS: Tamsulosin HCl 0.4 MG CAP PO SCH (20:08)
[2019-08-27] MEDS: tiZANidine HCl 4 MG TAB PO PRN (23:04)
--- NOTE | 2019-08-27 23:39 | DIS ---
DATE OF ADMISSION: 08/10/2019 DATE OF DISCHARGE: 08/28/2019 HOSPITAL COURSE: Mr. Palacios is a 69-year-old white male, who underwent a total left hip arthroplasty. When his epidural was removed, he had significant unbearable pain. Unfortunately, he also had urinary tract retention, low-grade temperature. He was given fluids, tramadol, and Fenton catheter was placed. He was transferred to [facility] for physical therapy and occupational therapy. He has now completed his course of therapy and is to be dismissed tomorrow morning after his morning therapy, his lunch and then afternoon therapy. He is to be dismissed at approximately 1 o'clock. PHYSICAL EXAMINATION: VITAL SIGNS: Today reveal blood pressure this morning 110/67, pulse 79 to 90, respirations 16 to 18, O2 saturation 93% to 97% on room air, T-max 98.1. GENERAL: This is a well-developed, well-nourished, very pleasant white male, in no apparent distress. He is very anxious and excited about being discharged tomorrow. HEENT: Normocephalic and nontraumatic cranium. Pupils equal, round, and reactive. Extraocular movements are intact. Nose and throat are slightly dry. NECK: Supple without masses, nodes, or bruits. CHEST: Clear to auscultation. No rales, rhonchi, wheezes, or cough is heard. HEART: Reveals a regular rate and rhythm without murmurs, gallops, or rubs. ABDOMEN: Soft, nontender without organomegaly. Normal bowel sounds are noted in all 4 quadrants. GENITOURINARY: Deferred. EXTREMITIES: Reveal no clubbing, cyanosis, or edema. Left hip incision is healed. LABORATORY DATA: Laboratories have been good with his sugars in the past 24 hours ranging from 129 to 186. IMPRESSION: 1. Orthostasis with hypotension, which responded very well to LEILA hose. The patient has been somewhat dehydrated, so his Lasix has been cut back to 20 mg daily. 2. Coronary artery disease. 3. History of chronic systolic congestive heart failure. 4. Status post left total hip. 5. Hypertension. 6. Diabetes, type 2. 7. Benign prostatic hyperplasia. 8. Generalized weakness. PLAN: 1. The patient will be discharged tomorrow after lunch after he gets therapy in the morning, then lunch and therapy in the afternoon. 2. Accu-Cheks before meals and at bedtime. 3. Continue to monitor the patient's blood pressure closely at home. 4. Stress ulcer prophylaxis. 5. Decubitus precautions. 6. Deep venous thrombosis prophylaxis. 7. The patient will continue with physical therapy at home. 8. The patient will be discharged tomorrow, Saturday, which is after lunch. 9. The patient does not know the home health that his and his daughter have picked it out, but he said that they have picked it out. 10. He is ready for discharge tomorrow. DISCHARGE MEDICATIONS: Will include the following; 1. Albuterol 2 puffs q.4 hours p.r.n. 2. Aspirin 81 mg b.i.d. scheduled. 3. Carvedilol 3.125 b.i.d. and the patient has 6.25 at home, so he will take half of a carvedilol b.i.d. 4. Duloxetine 60 mg twice a day. 5. Proscar 5 mg at bedtime. 6. Lasix. The patient is on 20 mg, which is half of his regular 40 mg dose at home. He will break his pill in half and take it half every morning. 7. Hydrocodone p.r.n. at his orthopedist's recommendations. 8. Losartan 25 mg daily. 9. Metformin 500 mg twice a day with food. 10. MiraLAX p.r.n. 11. Potassium chloride 10 mEq daily. 12. Rosuvastatin 20 mg at bedtime. 13. Tamsulosin, which is Flomax 0.4 mg scheduled at bedtime. 14. Tizanidine 4 mg p.o. b.i.d. p.r.n. severe muscle spasms. The patient's regular physician is Dr. Godfrey. He has been encouraged to go see Dr. Godfrey within the week. He is to bring all his medications. If he has any questions, to contact the hospital here for records. The patient has done extremely well. He is ready for discharge tomorrow after lunch. Job ID: [id number]
[2019-08-28] MEDS: Polyethylene Glycol 3350 17 GM Packet PO SCH (08:05)
[2019-08-28] MEDS: Furosemide 20 MG TAB PO SCH (08:06)
[2019-08-28] MEDS: metFORMIN 500 MG TAB PO SCH (08:06)
[2019-08-28] MEDS: Rosuvastatin 10 MG TAB PO SCH (08:07)
[2019-08-28] MEDS: Carvedilol 3.125 MG TAB PO SCH (08:07)
[2019-08-28] MEDS: Gabapentin 300 MG CAP PO SCH (08:08)
[2019-08-28] MEDS: DULoxetine 30 MG CAP PO SCH (08:08)
[2019-08-28] MEDS: Aspirin 81 mg Enteric Coated Tablet PO SCH (08:09)
[2019-08-28] MEDS: Potassium Chloride 10 MEQ TAB PO SCH (08:09)
[2019-08-28] MEDS: Losartan 25 MG TAB PO SCH (08:09)
[2019-08-28] MEDS: HYDROcodone/Acetaminophen 10/325 mg Tablet PO PRN (13:31)
[2019-08-28 14:05] VITALS: BP 120/69; TEMP 96.8
== END 2019-08-28 13:30 | disposition home or self-care (01) | DRG 560 ==
LOC: NAV ACUTE 19:24
PROVIDERS: ADMIT Internal Medicine; ATTEND Internal Medicine
DX: Z47.1 Aftercare following joint replacement surgery (principal); I13.0 Hypertensive heart and chronic kidney disease with heart failure and stage 1 through stage 4 chronic kidney disease, or unspecified chronic kidney disease; I50.22 Chronic systolic (congestive) heart failure; I25.10 Atherosclerotic heart disease of native coronary artery without angina pectoris; E11.22 Type 2 diabetes mellitus with diabetic chronic kidney disease; Z96.652 Presence of left artificial knee joint; E78.5 Hyperlipidemia, unspecified; R53.1 Weakness; I95.1 Orthostatic hypotension; Z95.1 Presence of aortocoronary bypass graft; Z91.040 Latex allergy status; Z88.8 Allergy status to other drugs, medicaments and biological substances; Z87.891 Personal history of nicotine dependence; N40.1 Benign prostatic hyperplasia with lower urinary tract symptoms; R33.8 Other retention of urine; K59.00 Constipation, unspecified; E86.0 Dehydration
CPT/HCPCS: 36415; 36416; 80048; 85025